=== PATIENT | male | born 1940 | race Caucasian/White ===

== ENCOUNTER 2018-01-31 08:14 | Emergency (ER) | payer MEDICARE, BC | END 2018-01-31 09:26 | disposition home or self-care (01) | LOC: M ED 08:14 | DX: S83.91XA Sprain of unspecified site of right knee, initial encounter (principal); M25.461 Effusion, right knee; X58.XXXA Exposure to other specified factors, initial encounter; Y92.9 Unspecified place or not applicable; Y93.9 Activity, unspecified; Y99.9 Unspecified external cause status; M25.761 Osteophyte, right knee; I10 Essential (primary) hypertension; J45.909 Unspecified asthma, uncomplicated; Z79.899 Other long term (current) drug therapy | CPT/HCPCS: 73564 ==

== ENCOUNTER → 2018-12-18 | Outpatient (REF) | payer MEDICARE, BC ==
[~2018-12-18] MED LIST: ACET-716 PO; ADV250INH; PRAV80TA2; REST0.05; [UNRECOGNIZED DRUG - CODE] PO
[2018-12-18 15:00] LABS: SOURCE, BODY FLUID RT ELBOW; SYNOVIAL FLUID COLOR PINK (YELLOW)
[2018-12-18 15:01] LABS: CRYSTALS, BODY FLUID NONE SEEN (NONE SEEN); SOURCE, BODY FLUID CRYSTALS RT ELBOW
[2018-12-18 15:36] LABS: SOURCE, BODY FLUID GLUCOSE RT ELBOW; SOURCE, BODY FLUID URIC ACID RT ELBOW; URIC ACID, BODY FLUID 4.6 MG/DL (NOT ESTABLISHED)
[2018-12-19 07:42] LABS: BODY FLUID RHEUMATOID SCREEN NEGATIVE (NEGATIVE)
[2018-12-19 07:44] LABS: MUCIN CLOT TEST 3+ (4+)
== END ==
LOC: M LAB REF 14:23
PROVIDERS: ATTEND Physician Assistant Surgical
DX: M70.21 Olecranon bursitis, right elbow (principal)

== ENCOUNTER → 2019-02-12 | Outpatient (REF) | payer MEDICARE, BC ==
[2019-02-12 13:27] LABS: SOURCE, BODY FLUID RT ELBOW; SYNOVIAL FLUID COLOR PINK (YELLOW)
[2019-02-12 13:28] LABS: MUCIN CLOT TEST 3+ (4+)
[2019-02-12 13:29] LABS: CRYSTALS, BODY FLUID NONE SEEN (NONE SEEN); SOURCE, BODY FLUID CRYSTALS RT ELBOW
[2019-02-12 13:37] LABS: BODY FLUID RHEUMATOID SCREEN NEGATIVE (NEGATIVE)
[2019-02-12 14:38] LABS: SOURCE, BODY FLUID GLUCOSE RT ELBOW; SOURCE, BODY FLUID URIC ACID RT ELBOW; URIC ACID, BODY FLUID 3.7 MG/DL (NOT ESTABLISHED)
== END ==
LOC: M LAB REF 13:15
PROVIDERS: ATTEND Physician Assistant Surgical
DX: M70.21 Olecranon bursitis, right elbow (principal)

== ENCOUNTER → 2020-05-03 | Outpatient (REF) | payer MEDICARE, BC ==
[2020-05-03 17:23] LABS: APPEARANCE, URINE CLEAR (CLEAR); BACTERIA, URINE AUTO NEGATIVE (NEGATIVE); BILIRUBIN, URINE AUTO NEGATIVE (NEGATIVE); BLOOD, URINE BLOOD NEGATIVE (NEGATIVE); COLOR, URINE YELLOW (YELLOW); GLUCOSE, URINE (UA) AUTO NEGATIVE (NEGATIVE); KETONE, URINE AUTO NEGATIVE (NEGATIVE); LEUKOCYTE ESTERASE, URINE AUTO NEGATIVE (NEGATIVE); MUCUS, URINE SMALL (NEGATIVE); NITRITE, URINE AUTO NEGATIVE (NEGATIVE); PROTEIN, URINE AUTO NEGATIVE (NEGATIVE); RBC, URINE AUTO 0 /HPF (0-3); SPECIFIC GRAVITY URINE AUTO 1.015 (1.002-1.035); SQUAMOUS EPITHELIAL CELL UR AU 0 /HPF (0-6); UROBILINOGEN, URINE AUTO 0.2 mg/dL (0.0-2.0); WBC, URINE AUTO 0 /HPF (0-3)
== END ==
LOC: M LAB REF 16:16
PROVIDERS: ATTEND Internal Medicine
DX: R31.9 Hematuria, unspecified (principal)

== ENCOUNTER → 2020-05-10 | Outpatient (REF) | payer MEDICARE, BC | LOC: M LAB REF 16:16 | PROVIDERS: ATTEND Internal Medicine | DX: R31.9 Hematuria, unspecified (principal) ==

== ENCOUNTER → 2020-05-17 | Outpatient (REF) | payer MEDICARE, BC | LOC: M LAB REF 16:28 | PROVIDERS: ATTEND Internal Medicine | DX: R31.9 Hematuria, unspecified (principal) ==

== ENCOUNTER → 2021-05-17 | Outpatient (CLI) | payer MEDICARE, BC ==
--- NOTE | 2021-05-17 13:44 | REP ---
INDICATION: COUGH COMPARISON: None. TECHNIQUE: PA and lateral. FINDINGS: The mediastinum and cardiac silhouette are normal. The lung lobato are clear and without acute consolidation, effusion, or pneumothorax. The skeletal structures are intact and normal. IMPRESSION: No acute cardiopulmonary process. <Electronically signed by Eliseo Alston > 05/17/21 1965
== END ==
LOC: M WUC 13:30
PROVIDERS: ATTEND Internal Medicine
DX: R05.9 Cough, unspecified (principal)

== ENCOUNTER → 2022-06-07 | Outpatient (CLI) | payer MEDICARE, BC | LOC: M WUC 10:27 | PROVIDERS: ATTEND Internal Medicine | DX: Z00.00 Encounter for general adult medical examination without abnormal findings (principal) ==

== ENCOUNTER → 2022-06-07 | Outpatient (CLI) | payer MEDICARE, BC | LOC: M WUC 10:14 | PROVIDERS: ATTEND Internal Medicine | DX: R05.3 Chronic cough (principal) ==

== ENCOUNTER → 2022-10-31 | Outpatient (CLI) | payer MEDICARE, BC | LOC: M WUC 10:26 | PROVIDERS: ATTEND Internal Medicine | DX: M79.89 Other specified soft tissue disorders (principal) ==

== ENCOUNTER 2023-08-16 10:20 | Emergency (ER) | payer MEDICARE, BC ==
[~2023-08-16] VITALS: Ht 182.9 cm; Wt 71.8 kg
[2023-08-16 11:05] LABS: BASO % 0.6 % (0.0-1.0); EOS # 0.2 10^3/uL (0.0-0.5); EOS % 3.1 % (0.0-3.0); HEMATOCRIT 42.6 % (42.0-52.0); HEMOGLOBIN 14.5 g/dl (13.5-17.5); LYMPH # 0.9 10^3/uL (1.5-5.0); MEAN CORPUSCULAR HEMOGLOBIN 31.7 pg (27.0-33.0); MONO # 0.6 10^3/uL (0.0-0.8); MONO % 13.3 % (2.0-8.0); NEUTROPHILS # 3.1 10^3/uL (1.5-8.5); NEUTROPHILS % 63.8 % (36.0-66.0); PLATELET COUNT, AUTOMATED 201 10^3/uL (150-450); RED BLOOD COUNT 4.58 10^6/uL (4.30-6.10); WHITE BLOOD COUNT 4.8 10^3/uL (4.0-10.0)
[2023-08-16 11:17] LABS: INR 0.99; PROTHROMBIN TIME 12.8 SECONDS (12.5-14.5)
[2023-08-16] MEDS ORDERED: FAMO40TA3 PO (11:29)
[2023-08-16] MEDS ORDERED: PRAV40TA2 (11:29)
[2023-08-16] MEDS ORDERED: IRBE150T27 PO (11:29)
[2023-08-16] MEDS ORDERED: TAMS1CAP17 (11:29)
[2023-08-16 11:35] LABS: ALBUMIN 3.8 G/DL (3.2-5.2); ALKALINE PHOSPHATASE 79 U/L (46-116); ALT/SGPT 27 U/L (7.0-40); AST/SGOT 18 U/L (<34); BILIRUBIN,DIRECT 0.2 MG/DL (<0.4); BILIRUBIN,TOTAL 0.5 MG/DL (0.3-1.2); BLOOD UREA NITROGEN 17 MG/DL (9-23); CALCIUM LEVEL 8.8 MG/DL (8.3-10.6); CARBON DIOXIDE LEVEL 27 MMOL/L (20-31); CHLORIDE LEVEL 107 MMOL/L (98-107); CREATININE FOR GFR 0.97 MG/DL (0.70-1.30); GLOMERULAR FILTRATION RATE > 60.0 (>35); GLUCOSE, FASTING 121 MG/DL (74-106); POTASSIUM SERUM 4.2 MMOL/L (3.5-5.1); SODIUM LEVEL 141 MMOL/L (136-145); TOTAL PROTEIN 6.4 G/DL (5.7-8.2)
[2023-08-16 12:15] VITALS: BP 169/75
[2023-08-16 12:20] VITALS: O2SAT 95
[2023-08-16] MEDS ORDERED: COLA100C5 PO (12:25)
[2023-08-16 12:39] VITALS: TEMP 98.9
== END 2023-08-16 12:43 | disposition home or self-care (01) ==
LOC: EDBD 10:20 → M ED 10:20
DX: K62.5 Hemorrhage of anus and rectum (principal); I10 Essential (primary) hypertension; E78.5 Hyperlipidemia, unspecified; Z79.899 Other long term (current) drug therapy

== ENCOUNTER → 2024-04-08 | Outpatient (CLI) | payer MEDICARE, BC ==
[~2024-04-08] MED LIST changes: +COLA100C5 PO; +FAMO40TA3 PO; +IRBE150T27 PO; +PRAV40TA2; +TAMS1CAP17
== END ==
LOC: M WUC 11:14
PROVIDERS: ATTEND Internal Medicine
DX: I10 Essential (primary) hypertension (principal)

== ENCOUNTER 2025-05-25 05:55 | Day surgery (SDC) | payer MEDICARE, BC ==
[~2025-05-25] VITALS: Ht 180.3 cm; Wt 69.2 kg
[~2025-05-25 05:55] MED LIST changes: -ADV250INH; +ADVA1AER9; +FLUT1BLS2; +MELO15TA28 PO; +MULTTAB61 PO; -PRAV40TA2; +PRAV40TA85 PO; -PRAV80TA2; +PRAV80TA75; -TAMS1CAP17; +TAMS1CAP17 PO
[2025-05-25] MEDS: LR 1,000 ML IV SCH (06:35)
[2025-05-25] MEDS: CelecoXIB 400 MG CAP PO ONE (07:04)
[2025-05-25] MEDS: ceFAZolin SOD 2 GM IV ONCE IV ONE (07:47)
[2025-05-25] MEDS ORDERED: SUGAMMADEX SODIUM 200 MG/2 ML VIAL As Ordered ONE (07:55)
[2025-05-25] MEDS ORDERED: LIDOCAINE 2% 100 MG/5 ML SDV (FOR ANES.) As Ordered ONE (07:55)
[2025-05-25] MEDS ORDERED: ROCURONIUM BROMIDE 50MG/5ML VIAL As Ordered ONE (07:55)
[2025-05-25] MEDS ORDERED: ONDANSETRON 4MG/2ML VIAL As Ordered ONE (07:55)
[2025-05-25] MEDS ORDERED: dexAMETHasone 4 MG/ML 1 ML VIAL As Ordered ONE (07:55)
[2025-05-25] MEDS ORDERED: ACETAMINOPHEN 1000MG/100ML IV BAG As Ordered ONE (07:55)
[2025-05-25] MEDS ORDERED: HYDROmorphone HCL 2 MG/ML 1 ML VIAL As Ordered ONE (08:19)
[2025-05-25] MEDS: LIDOCAINE 1% SDV 30 ML VIAL As Ordered ONE (08:40)
[2025-05-25] MEDS ORDERED: MORPHINE 2 MG/ML 1 ML VIAL IV PRN (08:50)
[2025-05-25] MEDS: ONDANSETRON 4MG/2ML VIAL IV PRN (09:31)
[2025-05-25] MEDS: KETOROLAC 30 MG/ML 1 ML VIAL IV ONE (09:34)
[2025-05-25] MEDS: HYDROMORPHONE HCL 0.5 MG/0.5 ML SYRINGE IV PRN (10:05)
[2025-05-25 11:20] VITALS: BP 127/59; TEMP 97; O2SAT 96
== END 2025-05-25 11:25 | disposition home or self-care (01) ==
LOC: M SDC 05:55
PROVIDERS: ATTEND Surgery
DX: K40.90 Unilateral inguinal hernia, without obstruction or gangrene, not specified as recurrent (principal); D17.6 Benign lipomatous neoplasm of spermatic cord; R06.83 Snoring; I10 Essential (primary) hypertension; E78.00 Pure hypercholesterolemia, unspecified; R12 Heartburn; M19.90 Unspecified osteoarthritis, unspecified site; J44.9 Chronic obstructive pulmonary disease, unspecified; M54.9 Dorsalgia, unspecified; Z79.899 Other long term (current) drug therapy
CPT/HCPCS: 49650; 64425; C1781; J0131; J0665; J0688; J1100; J1171; J1885; J2405; J3010; S2900